=== PATIENT | male | born 1960 | race African-American/Black ===

== ENCOUNTER 2018-07-18 04:13 | Emergency (ER) | payer OTHER ==
[~2018-07-18] VITALS: Ht 182.9 cm; Wt 86.2 kg
[~2018-07-18 04:13] MED LIST: FLEXERIL PO; FLOMAX PO; HYDROCODON-ACE1 EAC8 PO; LORTAB 5-500 T1 EAC1; MEDROLDOSEPACK PO; NOHOMEMEDICATIONS; NORCO 5-325 TA1 EACH PO; NORFLEX100 MG PO; PERCOCET 5-3251 EACH PO; PERCOCET 7.5-31 EACH PO; ZOFRAN ODT4 MG PO
[2018-07-18 04:17] VITALS: BP 138/92
[2018-07-18] MEDS ORDERED: ULTRAM 50MG TAB50 MG PO (04:33)
[2018-07-18] MEDS ORDERED: NORFLEX100 MG PO (04:33)
[2018-07-18] MEDS ORDERED: IBUPROFEN 600600 M1 PO (04:33)
== END 2018-07-18 04:50 | disposition home or self-care (01) ==
LOC: ER 04:13
DX: S39.012A Strain of muscle, fascia and tendon of lower back, initial encounter (principal); F17.210 Nicotine dependence, cigarettes, uncomplicated; I10 Essential (primary) hypertension; E78.00 Pure hypercholesterolemia, unspecified; X58.XXXA Exposure to other specified factors, initial encounter; Y92.89 Other specified places as the place of occurrence of the external cause; Y93.89 Activity, other specified; Y99.8 Other external cause status

== ENCOUNTER 2019-07-25 10:10 | Emergency (ER) | payer OTHER ==
[~2019-07-25] VITALS: Ht 182.9 cm; Wt 97.5 kg
[~2019-07-25 10:10] MED LIST changes: +IBUPROFEN 600600 M1 PO; +ULTRAM 50MG TAB50 MG PO
[2019-07-25 10:11] VITALS: BP 147/101
[2019-07-25] MEDS ORDERED: NOHOMEMEDICATIONS (10:14)
[2019-07-25] MEDS ORDERED: MOBIC15 MG PO (11:17)
[2019-07-25] MEDS ORDERED: CIPRODEX OTIC7.5 ML OTIC (11:17)
== END 2019-07-25 11:16 | disposition home or self-care (01) ==
LOC: ER 10:10
DX: H60.92 Unspecified otitis externa, left ear (principal); F17.210 Nicotine dependence, cigarettes, uncomplicated; I10 Essential (primary) hypertension; E78.00 Pure hypercholesterolemia, unspecified

== ENCOUNTER 2019-10-12 08:28 | Emergency (ER) | payer OTHER ==
[~2019-10-12] VITALS: Ht 182.9 cm; Wt 120.2 kg
[~2019-10-12 08:28] MED LIST changes: +CIPRODEX OTIC7.5 ML OTIC; +MOBIC15 MG PO
[2019-10-12 10:12] VITALS: BP 140/98
== END 2019-10-12 10:12 | disposition home or self-care (01) ==
LOC: ER 08:28
DX: H60.92 Unspecified otitis externa, left ear (principal); I10 Essential (primary) hypertension; E78.00 Pure hypercholesterolemia, unspecified; F17.210 Nicotine dependence, cigarettes, uncomplicated

== ENCOUNTER 2020-01-01 03:14 | Emergency (ER) | payer OTHER ==
[~2020-01-01] VITALS: Ht 185.4 cm; Wt 90.7 kg
--- NOTE | ~2020-01-01 | EKG ---
[facility] [address] [place] [address] ELECTROCARDIOGRAM REPORT Name: KRISSY INIGUEZ V Room #: [facility].Jennyfer#: [id number] Admission: 01/01/20 Attend Phys: Discharge: 01/01/20 Date of : 60 Report #: [id number] THIS REPORT FOR: cc: [facility] - Clinic physician unknown [facility] - Clinic physician unknown Rajeev Boo MD ~ THIS REPORT FOR: //name// [facility] ED Test Date: 2020-01-01 Test Time: 03:43:31 Pat Name: KRISSY INIGUEZ Department: Room: Gender: M Clinical Resource Coordinator: alfa cline rn : 1960 Requested By: Chris Neri Order Number: [id number] MD: Measurements Intervals [place] Rate: 89 P: 53 [place]: 149 QRS: -11 QRSD: 86 T: 8 QT: 371 QTc: 452 Interpretive Statements Sinus rhythm Consider left ventricular hypertrophy No previous ECG available for comparison [email or web address] By: 2 2 Rajeev Boo MD /EPI
[2020-01-01 04:32] LABS: ANION GAP 14 mmol/L (7-16); BUN 15 mg/dL (7-18); CALCIUM 10.4 mg/dL (8.5-10.1); CHLORIDE 102 mmol/L (98-107); CO2 23 mmol/L (21-32); GLUCOSE 99 mg/dL (74-106); POTASSIUM 3.7 mmol/L (3.5-5.1); SODIUM 139 mmol/L (136-145)
[2020-01-01 04:42] LABS: ALBUMIN 4.4 g/dL (3.4-5.0); SGOT 43 U/L (15-37); SGPT 39 U/L (30-65); TOTAL BILIRUBIN 0.7 mg/dL (<0.1-1.0); TOTAL PROTEIN 8.1 g/dL (6.4-8.2); TROPONIN-I <0.06 ng/mL (<0.06)
[2020-01-01 04:46] LABS: ABSOLUTE NEUTROPHILS 4.2 thou/uL (1.4-8.2); BASOPHILS 0.8 % (0.0-2.0); EOSINOPHILS 0.5 % (0.0-3.0); HEMATOCRIT 43.5 % (42.0-52.0); LYMPHOCYTES 20.3 % (24.0-44.0); MCH 32.2 pg (26.0-34.0); MCHC 34.4 g/dL (28.0-37.0); MCV 93.4 fL (80.0-100.0); MONOCYTES 9.9 % (1.0-8.0); PLATELET COUNT 196 thou/uL (150-400); POLYS 68.5 % (36.0-66.0); RBC 4.65 mil/uL (4.50-6.00); RDW 15.2 % (10.5-14.5); WBC 6.2 thou/uL (4.0-11.0)
[2020-01-01] MEDS ORDERED: AUGMENTIN 875-1 EACH PO (04:54)
[2020-01-01] MEDS ORDERED: TRAMADOL 50 MG50 MG PO (05:40)
[2020-01-01] MEDS ORDERED: NAPROSYN500 MG PO (05:40)
[2020-01-01 06:31] VITALS: BP 129/86
== END 2020-01-01 06:34 | disposition home or self-care (01) ==
LOC: ER 03:14
PROVIDERS: Emergency Medicine
DX: R07.89 Other chest pain (principal); I10 Essential (primary) hypertension; E78.5 Hyperlipidemia, unspecified; F17.210 Nicotine dependence, cigarettes, uncomplicated

== ENCOUNTER 2020-02-28 13:36 | Emergency (ER) | payer OTHER ==
[~2020-02-28] VITALS: Ht 182.9 cm; Wt 95.3 kg
[~2020-02-28 13:36] MED LIST changes: +AUGMENTIN 875-1 EACH PO; +NAPROSYN500 MG PO; +TRAMADOL 50 MG50 MG PO
[2020-02-28 15:32] VITALS: BP 144/97
== END 2020-02-28 15:32 | disposition home or self-care (01) ==
LOC: ER 13:36
DX: B34.9 Viral infection, unspecified (principal); I10 Essential (primary) hypertension; E78.00 Pure hypercholesterolemia, unspecified; F17.210 Nicotine dependence, cigarettes, uncomplicated; Z20.828 Contact with and (suspected) exposure to other viral communicable diseases

== ENCOUNTER 2020-12-15 20:01 | Emergency (ER) | payer OTHER ==
[~2020-12-15] VITALS: Ht 182.9 cm; Wt 97.1 kg
[2020-12-15] MEDS ORDERED: ADVIL200 M1 PO (20:09)
[2020-12-15] MEDS ORDERED: MEDROLDOSEPACK PO (21:00)
[2020-12-15] MEDS ORDERED: MOBIC7.5 MG PO (21:00)
[2020-12-15 21:42] VITALS: BP 137/95
== END 2020-12-15 21:45 | disposition home or self-care (01) ==
LOC: ER 20:01
DX: M25.511 Pain in right shoulder (principal); I10 Essential (primary) hypertension; E78.00 Pure hypercholesterolemia, unspecified; F17.210 Nicotine dependence, cigarettes, uncomplicated; Z98.890 Other specified postprocedural states; Z79.899 Other long term (current) drug therapy; X50.1XXA Overexertion from prolonged static or awkward postures, initial encounter; Y93.89 Activity, other specified; Y92.89 Other specified places as the place of occurrence of the external cause; Y99.8 Other external cause status

== ENCOUNTER 2020-12-22 16:52 | Emergency (ER) | payer OTHER ==
[~2020-12-22] VITALS: Ht 180.3 cm; Wt 97.5 kg
[~2020-12-22 16:52] MED LIST changes: +ADVIL200 M1 PO; +MOBIC7.5 MG PO
[2020-12-22] MEDS ORDERED: FLEXERIL PO (17:30)
[2020-12-22] MEDS ORDERED: HYDROCODON-ACE1 EAC7 PO (17:30)
[2020-12-22 18:22] VITALS: BP 160/106
--- NOTE | 2020-12-23 07:47 | EKG ---
[address] [address] [place] [address] ELECTROCARDIOGRAM REPORT Name: KRISSY INIGUEZ V [facility]enny[facility]#: [id number] Admission: 12/22/20 Attend Phys: Discharge: 12/22/20 Date of : 60 Report #: [id number] 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 : 1960 Requested By: Miky Cassidy Order Number: [id number] MD: Mario Crowder Measurements Intervals [place] Rate: 68 P: 14 [place]: 161 QRS: 0 QRSD: 91 T: 27 QT: 386 QTc: 411 Interpretive Statements Sinus rhythm No significant abnormality Baseline wander in lead(s) V2 Compared to ECG 01/01/2020 03:43:31 No significant change was found Electronically Signed On 12-23-2020 7:47:23 GENERAL INTERN by Mario Crowder [email or web address] <ELECTRONICALLY SIGNED> By: Mario Crowder MD, [facility] 12/23/20 0747 1744 1744 Mario Crowder MD, FACC /EPI
== END 2020-12-22 18:22 | disposition home or self-care (01) ==
LOC: ER 16:52
DX: G89.29 Other chronic pain (principal); Z20.828 Contact with and (suspected) exposure to other viral communicable diseases; M25.511 Pain in right shoulder; R06.02 Shortness of breath; B02.9 Zoster without complications; F17.210 Nicotine dependence, cigarettes, uncomplicated; I10 Essential (primary) hypertension; E78.00 Pure hypercholesterolemia, unspecified; Z98.890 Other specified postprocedural states

== ENCOUNTER → 2021-06-10 | Emergency (ER) | payer OTHER ==
[~2021-06-10] VITALS: Ht 182.9 cm; Wt 99.8 kg
[~2021-06-10] MED LIST changes: +HYDROCODON-ACE1 EAC7 PO; +NORCO5 PO
[2021-06-10 11:32] LABS: ABSOLUTE NEUTROPHILS 1.9 thou/uL (1.4-8.2); BASOPHILS 0.6 % (0.0-2.0); EOSINOPHILS 3.8 % (0.0-3.0); HEMATOCRIT 45.8 % (42.0-52.0); HEMOGLOBIN 15.6 gm/dL (14.0-18.0); LYMPHOCYTES 29.3 % (24.0-44.0); MCH 32.8 pg (26.0-34.0); MCHC 34.1 g/dL (28.0-37.0); MONOCYTES 11.8 % (1.0-8.0); PLATELET COUNT 218 thou/uL (150-400); POLYS 54.5 % (36.0-66.0); RBC 4.77 mil/uL (4.50-6.00); WBC 3.4 thou/uL (4.0-11.0)
[2021-06-10 11:34] LABS: ANION GAP 8 mmol/L (7-16); BUN 16 mg/dL (7-18); CALCIUM 9.2 mg/dL (8.5-10.1); CHLORIDE 108 mmol/L (98-107); CO2 25 mmol/L (21-32); CREATININE 1.1 mg/dL (0.7-1.3); GLUCOSE 114 mg/dL (74-106); POTASSIUM 3.8 mmol/L (3.5-5.1); SODIUM 141 mmol/L (136-145)
--- NOTE | 2021-06-10 11:39 | EKG ---
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: : 1960 Requested By: Ludmila Castro Order Number: [id number] MD: Cesario Cordon Measurements Intervals [place] Rate: 64 P: 73 [place]: 150 QRS: 6 QRSD: 92 T: 31 QT: 403 QTc: 416 Interpretive Statements Sinus rhythm Left ventricular hypertrophy J Point elevation precordial leads Compared to ECG 12/22/2020 17:44:05 Left ventricular hypertrophy now present ST (T wave) deviation now present Electronically Signed On 06-10-2021 11:39:40 CDT by Cesario Cordon [email or web address] <ELECTRONICALLY SIGNED> By: Cesario Cordon MD, [facility] 06/10/21 1139 1046 1046 Cesario Cordon MD, FACC /EPI
[2021-06-10 11:44] LABS: ALBUMIN 3.9 g/dL (3.4-5.0); SGOT 30 U/L (15-37); SGPT 43 U/L (16-63); TOTAL BILIRUBIN 0.4 mg/dL (0.2-1.0); TOTAL PROTEIN 7.3 g/dL (6.4-8.2); TROPONIN-I <0.06 ng/mL (<0.06)
[2021-06-10 13:31] LABS: URINE BILIRUBIN NEGATIVE (Negative); URINE BLOOD NEGATIVE (Negative); URINE CLARITY CLEAR; URINE COLOR YELLOW; URINE GLUCOSE-RANDOM* NEGATIVE (Negative); URINE KETONES NEGATIVE (Negative); URINE LEUKOCYTES-REFLEX NEGATIVE (Negative); URINE NITRITE-REFLEX NEGATIVE (Negative); URINE PROTEIN (DIPSTICK) NEGATIVE (Negative); URINE UROBILINOGEN 0.2 E.U./dl (0.2-1.0)
[2021-06-10 15:00] VITALS: BP 144/88
== END ==
LOC: ER 10:39
PROVIDERS: Physician Assistant
DX: R07.89 Other chest pain (principal); R51.9 Headache, unspecified; F17.210 Nicotine dependence, cigarettes, uncomplicated; I10 Essential (primary) hypertension; E78.00 Pure hypercholesterolemia, unspecified; Z98.890 Other specified postprocedural states

== ENCOUNTER 2021-08-23 16:14 | Emergency (ER) | payer OTHER ==
[~2021-08-23] VITALS: Ht 180.3 cm; Wt 90.7 kg
[2021-08-23 17:22] LABS: ABSOLUTE NEUTROPHILS 3.4 thou/uL (1.4-8.2); BASOPHILS 0.4 % (0.0-2.0); EOSINOPHILS 1.8 % (0.0-3.0); HEMATOCRIT 44.8 % (42.0-52.0); HEMOGLOBIN 15.2 gm/dL (14.0-18.0); LYMPHOCYTES 15.4 % (24.0-44.0); MCH 32.5 pg (26.0-34.0); MCHC 33.8 g/dL (28.0-37.0); PLATELET COUNT 211 thou/uL (150-400); POLYS 67.4 % (36.0-66.0); RBC 4.67 mil/uL (4.50-6.00); RDW 14.2 % (10.5-14.5); WBC 5.1 thou/uL (4.0-11.0)
[2021-08-23 17:31] LABS: POTASSIUM 3.5 mmol/L (3.5-5.1)
[2021-08-23] MEDS ORDERED: TESSALON PERLE100 MG PO (17:42)
[2021-08-23 17:49] VITALS: BP 146/102
--- NOTE | 2021-08-24 11:32 | EKG ---
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: : 1960 Requested By: Alejandro Wilks Order Number: [id number] MD: Cesario Cordon Measurements Intervals [place] Rate: 88 P: 58 [place]: 151 QRS: 0 QRSD: 92 T: 32 QT: 356 QTc: 431 Interpretive Statements Sinus rhythm Probable left atrial enlargement Compared to ECG 06/10/2021 10:46:25 Left ventricular hypertrophy no longer present Electronically Signed On 08-24-2021 11:32:02 CDT by Cesario Cordon [email or web address] <ELECTRONICALLY SIGNED> By: Cesario Cordon MD, [facility] 08/24/21 1132 1648 1648 Cesario Cordon MD, FACC /EPI
[2021-08-24] MEDS ORDERED: XANAX 0.5 MG0.5 MG PO (12:30)
[2021-08-24] MEDS ORDERED: PREDNISONE 20 M20 MG PO (12:30)
--- NOTE | 2021-08-25 16:28 | EKG ---
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
== END 2021-08-23 17:45 | disposition home or self-care (01) ==
LOC: ER 16:14
PROVIDERS: Nurse Practitioner
DX: I10 Essential (primary) hypertension (principal); E78.00 Pure hypercholesterolemia, unspecified; R05 Cough; R11.0 Nausea; M79.10 Myalgia, unspecified site; Z20.822 Contact with and (suspected) exposure to COVID-19

== ENCOUNTER 2021-08-24 11:12 | Emergency (ER) | payer OTHER ==
[~2021-08-24] VITALS: Ht 180.3 cm; Wt 90.7 kg
[~2021-08-24 11:12] MED LIST changes: +TESSALON PERLE100 MG PO
[2021-08-24] MEDS ORDERED: PREDNISONE 20 M20 MG PO (12:30)
[2021-08-24] MEDS ORDERED: XANAX 0.5 MG0.5 MG PO (12:30)
[2021-08-24 12:38] VITALS: BP 140/105
== END 2021-08-24 12:40 | disposition home or self-care (01) ==
LOC: ER 11:12
DX: R07.89 Other chest pain (principal); I10 Essential (primary) hypertension; E78.00 Pure hypercholesterolemia, unspecified; Z79.899 Other long term (current) drug therapy

== ENCOUNTER 2022-01-06 10:29 | Emergency (ER) | payer OTHER ==
[~2022-01-06] VITALS: Ht 182.9 cm; Wt 88.5 kg
[~2022-01-06 10:29] MED LIST changes: +PREDNISONE 20 M20 MG PO; +XANAX 0.5 MG0.5 MG PO
[2022-01-06 11:15] LABS: ABSOLUTE NEUTROPHILS 2.1 thou/uL (1.4-8.2); BASOPHILS 0.4 % (0.0-2.0); EOSINOPHILS 3.9 % (0.0-3.0); HEMATOCRIT 41.7 % (42.0-52.0); HEMOGLOBIN 14.4 gm/dL (14.0-18.0); LYMPHOCYTES 29.3 % (24.0-44.0); MCH 32.8 pg (26.0-34.0); MCHC 34.4 g/dL (28.0-37.0); MCV 95.4 fL (80.0-100.0); MONOCYTES 11.2 % (1.0-8.0); PLATELET COUNT 205 thou/uL (150-400); POLYS 55.2 % (36.0-66.0); RBC 4.37 mil/uL (4.50-6.00); RDW 13.7 % (10.5-14.5); WBC 3.9 thou/uL (4.0-11.0)
[2022-01-06 11:22] LABS: CALCIUM 9.2 mg/dL (8.5-10.1); POTASSIUM 3.8 mmol/L (3.5-5.1)
[2022-01-06 11:28] LABS: ALBUMIN 3.5 g/dL (3.4-5.0); TOTAL BILIRUBIN 0.4 mg/dL (0.2-1.0); TOTAL PROTEIN 6.3 g/dL (6.4-8.2)
[2022-01-06] MEDS ORDERED: TESSALON PERLE100 MG PO (11:46)
[2022-01-06] MEDS ORDERED: MEDROLDOSEPACK PO (11:46)
[2022-01-06 11:52] VITALS: BP 140/93
== END 2022-01-06 11:52 | disposition home or self-care (01) ==
LOC: ER 10:29
PROVIDERS: Student in an Organized Health Care Education/Training Program
DX: J06.9 Acute upper respiratory infection, unspecified (principal); Z20.822 Contact with and (suspected) exposure to COVID-19; R05.9 Cough, unspecified; I10 Essential (primary) hypertension; E78.00 Pure hypercholesterolemia, unspecified; F17.210 Nicotine dependence, cigarettes, uncomplicated; Z98.890 Other specified postprocedural states; Z79.899 Other long term (current) drug therapy; Z79.891 Long term (current) use of opiate analgesic; Z79.1 Long term (current) use of non-steroidal anti-inflammatories (NSAID)